=== PATIENT | female | born 1995 | race Caucasian/White ===

== ENCOUNTER 2017-09-23 03:56 | Outpatient (CLI) | payer OTHER ==
[~2017-09-23] VITALS: Ht 170.2 cm; Wt 84.5 kg
[2017-09-23 04:05] VITALS: BP 117/75
[2017-09-23] MEDS ORDERED: HYDROcodone/APAP 10/325 MG TABLET ONE (04:17)
[2017-09-23] MEDS ORDERED: ACYC-113 PO (04:18)
[2017-09-23] MEDS ORDERED: HYDROcodone/APAP 10/325 MG TABLET PO PRN (04:30)
== END 2017-09-23 05:17 | disposition home or self-care (01) ==
LOC: LDOP 03:56
PROVIDERS: ATTEND Student in an Organized Health Care Education/Training Program
DX: O62.9 Abnormality of forces of labor, unspecified (principal); Z3A.36 36 weeks gestation of pregnancy
CPT/HCPCS: 59025; 99211; G0463

== ENCOUNTER 2017-09-23 20:45 | Outpatient (CLI) | payer OTHER ==
[~2017-09-23] VITALS: Ht 170.2 cm; Wt 85.9 kg
[~2017-09-23 20:45] MED LIST: ACYC-113 PO
[2017-09-23 21:50] LABS: MICROSCOPIC INDICATED
[2017-09-23 22:58] LABS: MICROSCOPIC NOT IND
== END 2017-09-23 23:06 ==
LOC: LDOP 20:45
PROVIDERS: ATTEND Student in an Organized Health Care Education/Training Program
DX: O26.893 Other specified pregnancy related conditions, third trimester (principal); R10.9 Unspecified abdominal pain; Z3A.36 36 weeks gestation of pregnancy
CPT/HCPCS: 59025; 81001; 81003; 87086; 99211; G0463

== ENCOUNTER 2017-10-03 18:30 | Outpatient (CLI) | payer OTHER ==
[~2017-10-03] VITALS: Ht 168.9 cm; Wt 88.5 kg
[2017-10-03 18:41] VITALS: BP 128/93
[2017-10-03] MEDS ORDERED: VALA500T PO (19:10)
[2017-10-03] MEDS ORDERED: CEPH-376 PO (19:10)
== END 2017-10-03 20:48 | disposition home or self-care (01) ==
LOC: LDOP 18:30
PROVIDERS: ATTEND Student in an Organized Health Care Education/Training Program
DX: O26.893 Other specified pregnancy related conditions, third trimester (principal); R10.9 Unspecified abdominal pain; Z3A.38 38 weeks gestation of pregnancy
CPT/HCPCS: 59025; 99211; G0463

== ENCOUNTER 2017-10-16 05:39 | Inpatient (IN) | payer OTHER, MEDICAID ==
[~2017-10-16] VITALS: Ht 170.2 cm; Wt 94.0 kg
[~2017-10-16 05:39] MED LIST changes: +CEPH-376 PO; +VALA500T PO
[2017-10-16] MEDS ORDERED: OXYTOCIN 30U/ 0.9% NaCL 500ML 500 ML IV PRN (06:08)
[2017-10-16] MEDS ORDERED: OXYTOCIN 30U/ 0.9% NaCL 500ML 500 ML IV ONE (06:08)
[2017-10-16] MEDS ORDERED: ONDANSETRON 2MG/ML, 2ML IVPush PRN ×2 (06:30→13:30)
[2017-10-16] MEDS ORDERED: FENTANYL PF 100 MCG/2ML IV PRN (06:30)
[2017-10-16] MEDS ORDERED: SODIUM CITRATE/CITRIC ACID 30 ML UDC PO PRN (06:30)
[2017-10-16] MEDS ORDERED: TERBUTALINE 1 MG/ML, 1ML IVPush PRN (06:30)
[2017-10-16] MEDS ORDERED: FENTANYL PF 100 MCG/2ML IVPush PRN (06:30)
[2017-10-16] MEDS ORDERED: METOCLOPRAMIDE 5 MG/ML, 2ML IVPush PRN (06:30)
[2017-10-16] MEDS ORDERED: CALCIUM CARBONATE 500 MG TAB.CHEW PO PRN (06:30)
[2017-10-16 06:35] LABS: BASOPHILS # (AUTO) 0.11 x10^3/uL (0-0.3); BASOPHILS % (AUTO) 1 % (0-1); EOSINOPHILS # (AUTO) 0.08 x10^3/uL (0-0.8); EOSINOPHILS % (AUTO) 1 % (1-7); LYMPHOCYTES % (AUTO) 22 % (22-44); MD NO; MEAN CORPUSCULAR HEMOGLOBIN 29.2 pg (27.0-34.8); MEAN CORPUSCULAR HGB CONC 34.6 g/dL (32.4-35.8); MEAN CORPUSCULAR VOLUME 84.3 fL (80-100); MONOCYTES # (AUTO) 0.52 x10^3/uL (0-1.4); MONOCYTES % (AUTO) 6 % (2-9); NEUTROPHILS # (AUTO) 5.98 x10^3/uL (1.8-8.0); NEUTROPHILS % (AUTO) 70 % (42-75); PLATELET COUNT 324 x10^3/uL (130-400); RED BLOOD COUNT 3.52 x10^6/uL (3.82-5.3); RED CELL DISTRIBUTION WIDTH 14.8 % (9.6-15.2)
[2017-10-16] MEDS ORDERED: NEWBORN KIT ONE (06:36)
[2017-10-16] MEDS ORDERED: OXYTOCIN 30U/ 0.9% NaCL 500ML 500 ML ONE ×2 (06:37→18:52)
[2017-10-16 08:33] LABS: ALANINE AMINOTRANSFERASE 16 U/L (12-78); ALBUMIN 2.3 g/dL (3.4-5.0); ALKALINE PHOSPHATASE 154 U/L (45-117); ANION GAP 10 mmol/L (5-15); BILIRUBIN,TOTAL 0.3 mg/dL (0.2-1.0); CALCIUM 8.2 mg/dL (8.5-10.1); CHLORIDE 112 mmol/L (98-107)
[2017-10-16] MEDS ORDERED: FENTANYL PF 100 MCG/2ML ONE ×2 (10:36→11:02)
[2017-10-16] MEDS: LACTATED RINGERS 1,000 ML IV SCH ×5 (10:38→22:08)
[2017-10-16] MEDS ORDERED: BUPIVACAINE 0.25% ONE (11:02)
[2017-10-16] MEDS ORDERED: FENTANYL/BUPIV./NS/PF 250 ML EPIDCONT ONE (11:03)
[2017-10-16] MEDS ORDERED: FENTANYL/BUPIV./NS/PF 250 ML EPIDCONT SCH (13:03)
[2017-10-16] MEDS ORDERED: EPHEDRINE 50 MG/ML, 1ML IVPush PRN (13:30)
[2017-10-16] MEDS ORDERED: LACTATED RINGERS 1,000 ML IVBOLUS PRN (13:30)
[2017-10-16] MEDS: D5%-LACTATED RINGERS 1,000 ML IV SCH ×3 (14:08→22:08)
[2017-10-16] MEDS ORDERED: MISOPROSTOL 200 MCG TABLET ONE (16:34)
[2017-10-16] MEDS ORDERED: CARBOPROST TROMETHAMINE 250 MCG/ML, 1ML IM ONE (16:34)
[2017-10-16] MEDS: OXYTOCIN 30U/ 0.9% NaCL 500ML 500 ML IV SCH (18:54)
[2017-10-16] MEDS ORDERED: METOCLOPRAMIDE 5 MG/ML, 2ML IV PRN (19:00)
[2017-10-16] MEDS ORDERED: CARBOPROST TROMETHAMINE 250 MCG/ML, 1ML IM PRN (19:00)
[2017-10-16] MEDS ORDERED: GLYCERIN ADULT SUPP PR PRN (19:00)
[2017-10-16] MEDS ORDERED: BISACODYL 10 MG SUPP PR PRN (19:00)
[2017-10-16] MEDS ORDERED: ACETAMINOPHEN 325 MG TABLET PO PRN (19:00)
[2017-10-16] MEDS ORDERED: OXYcodone/APAP 5/325MG TABLET PO PRN ×2 (19:00)
[2017-10-16] MEDS ORDERED: DIPHENOXYLATE/ATROPINE TABLET PO PRN (19:00)
[2017-10-16] MEDS ORDERED: IBUPROFEN 800 MG TABLET PO PRN (19:00)
[2017-10-16] MEDS ORDERED: ONDANSETRON 2MG/ML, 2ML IV PRN (19:00)
[2017-10-16 19:26] LABS: HEMOGRAM NOTE RECHECKED
[2017-10-16] MEDS ORDERED: OXYcodone/APAP 10/325MG TABLET ONE (19:41)
[2017-10-16] MEDS ORDERED: IBUPROFEN 600 MG TABLET ONE (19:41)
[2017-10-16] MEDS: IBUPROFEN 600 MG TABLET PO PRN (19:52)
[2017-10-16] MEDS: OXYcodone/APAP 10/325MG TABLET PO PRN ×2 (19:52→23:51)
[2017-10-16 22:15] VITALS: BP 133/88
[2017-10-16 23:57] VITALS: BP 129/91
[2017-10-17] MEDS: IBUPROFEN 600 MG TABLET PO PRN ×4 (01:43→21:51)
[2017-10-17 02:33] LABS: MEAN CORPUSCULAR HEMOGLOBIN 28.5 pg (27.0-34.8); MEAN CORPUSCULAR HGB CONC 33.6 g/dL (32.4-35.8); MEAN CORPUSCULAR VOLUME 84.7 fL (80-100); MEAN PLATELET VOLUME 7.9 fL (7.4-10.4); PLATELET COUNT 278 x10^3/uL (130-400); RED BLOOD COUNT 2.57 x10^6/uL (3.82-5.3); RED CELL DISTRIBUTION WIDTH 14.6 % (9.6-15.2)
[2017-10-17 03:19] LABS: BASOPHILS # (AUTO) 0.03 x10^3/uL (0-0.3); BASOPHILS % (AUTO) 0 % (0-1); EOSINOPHILS # (AUTO) 0.02 x10^3/uL (0-0.8); EOSINOPHILS % (AUTO) 0 % (1-7); LYMPHOCYTES # (AUTO) 1.39 x10^3/uL (1-6.1); LYMPHOCYTES % (AUTO) 11 % (22-44); MD SCAN; MONOCYTES # (AUTO) 0.71 x10^3/uL (0-1.4); MONOCYTES % (AUTO) 5 % (2-9); NEUTROPHILS # (AUTO) 11.08 x10^3/uL (1.8-8.0); NEUTROPHILS % (AUTO) 84 % (42-75)
[2017-10-17] MEDS: OXYcodone/APAP 10/325MG TABLET PO PRN ×4 (03:56→21:51)
[2017-10-17 04:07] VITALS: BP 120/70
[2017-10-17] MEDS: OXYTOCIN 30U/ 0.9% NaCL 500ML 500 ML IV SCH ×2 (04:54→14:54)
[2017-10-17] MEDS: LACTATED RINGERS 1,000 ML IV SCH (05:03)
[2017-10-17] MEDS ORDERED: MISOPROSTOL 200 MCG TABLET PR ONE (07:00)
[2017-10-17 07:44] VITALS: BP 114/72
[2017-10-17] MEDS: PRENATAL VIT/IRON/FA 1 EACH TABLET PO SCH (07:46)
[2017-10-17] MEDS: FERROUS SULFATE 325 MG TABLET PO SCH ×3 (07:46→17:03)
[2017-10-17 12:15] VITALS: BP 129/80
[2017-10-17 12:44] LABS: MEAN CORPUSCULAR HEMOGLOBIN 28.7 pg (27.0-34.8); MEAN CORPUSCULAR HGB CONC 33.3 g/dL (32.4-35.8); MEAN CORPUSCULAR VOLUME 86.3 fL (80-100); MEAN PLATELET VOLUME 7.8 fL (7.4-10.4); PLATELET COUNT 278 x10^3/uL (130-400); RED BLOOD COUNT 2.53 x10^6/uL (3.82-5.3)
[2017-10-17 13:11] LABS: MD YES
[2017-10-17 13:16] LABS: BANDS%(MANUAL) 2 % (0-7); EOS% (MANUAL) 2 % (1-7); LYMPH#(MANUAL) 1.63 x10^3/uL (1-6.1); LYMPHS% (MANUAL) 16 % (22-44); MONOS% (MANUAL) 2 % (2-9); SEG#(MANUAL) 7.96 x10^3/uL (1.8-8); SEGS% (MANUAL) 78 % (42-75)
[2017-10-17 13:17] LABS: <PLATELET ESTIMATE> ADEQUATE; <PLT MORPHOLOGY> NORMAL PLT MORPH; ANISOCYTOSIS 1+; HYPOCHROMIA 1+
[2017-10-17 19:25] VITALS: BP 124/80
[2017-10-18] MEDS: OXYTOCIN 30U/ 0.9% NaCL 500ML 500 ML IV SCH ×2 (00:54→10:54)
[2017-10-18] MEDS: IBUPROFEN 600 MG TABLET PO PRN ×4 (04:02→22:12)
[2017-10-18 07:45] VITALS: BP 148/72
[2017-10-18] MEDS: DOCUSATE 100 MG CAPSULE PO PRN ×2 (07:50→20:15)
[2017-10-18] MEDS: OXYcodone/APAP 10/325MG TABLET PO PRN (07:50)
[2017-10-18] MEDS: PRENATAL VIT/IRON/FA 1 EACH TABLET PO SCH (07:50)
[2017-10-18] MEDS: FERROUS SULFATE 325 MG TABLET PO SCH ×3 (07:50→17:32)
[2017-10-18 20:15] VITALS: BP 128/79
[2017-10-19 00:03] VITALS: BP 125/76
[2017-10-19] MEDS: IBUPROFEN 600 MG TABLET PO PRN ×2 (04:36→11:01)
[2017-10-19] MEDS: FERROUS SULFATE 325 MG TABLET PO SCH (07:50)
[2017-10-19] MEDS: PRENATAL VIT/IRON/FA 1 EACH TABLET PO SCH (07:50)
[2017-10-19 08:59] VITALS: BP 121/73
[2017-10-19] MEDS ORDERED: FERR325T23 PO (09:17)
[2017-10-19] MEDS ORDERED: IBUP-1222 PO (09:18)
[2017-10-19] MEDS ORDERED: OXYC-302 PO (09:19)
== END 2017-10-19 11:45 | disposition home or self-care (01) | DRG 774 ==
LOC: LDIP 05:39 → 2NW 22:15
PROVIDERS: ADMIT Student in an Organized Health Care Education/Training Program; ATTEND Student in an Organized Health Care Education/Training Program
PROC: 10E0XZZ Delivery of Products of Conception, External Approach (ICD-10-PCS; principal; 2017-10-16)
PROC: 10907ZC Drainage of Amniotic Fluid, Therapeutic from Products of Conception, Via Natural or Artificial Opening (ICD-10-PCS; 2017-10-16)
PROC: 3E0R3BZ Introduction of Anesthetic Agent into Spinal Canal, Percutaneous Approach (ICD-10-PCS; 2017-10-16)
PROC: 00HU33Z Insertion of Infusion Device into Spinal Canal, Percutaneous Approach (ICD-10-PCS; 2017-10-16)
DX: O13.4 Gestational [pregnancy-induced] hypertension without significant proteinuria, complicating childbirth (principal); O72.1 Other immediate postpartum hemorrhage; O98.32 Other infections with a predominantly sexual mode of transmission complicating childbirth; A60.00 Herpesviral infection of urogenital system, unspecified; Z37.0 Single live birth; Z3A.39 39 weeks gestation of pregnancy
CPT/HCPCS: 36415; 80053; 82803; 84550; 85014; 85018; 85025; 86850; 86900; J2405; J3010; J3490; J2590; J7120; J7121